=== PATIENT | male | born 1970 | race Caucasian/White ===

== ENCOUNTER 2025-02-14 19:38 | Emergency (ER) | payer BC, OTHER ==
[2025-02-14 19:50] VITALS: TEMP 97.6
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
[2025-02-14] MEDS: SODIUM CHLORIDE 0.9% 1,000 ML IV ONE ×2 (20:08→22:09)
[2025-02-14 20:19] LABS: Basophils # (A) 0.06 10*3/uL (0.00-0.10); Basophils % (A) 0.2 %; Eosinophils # (A) 0.00 10*3/uL (0.04-0.35); Eosinophils % (A) 0.0 %; HCT 40.8 % (39.6-50.0); HGB 14.8 g/dL (13.0-17.0); Lymphocytes # (A) 0.81 10*3/uL (0.90-5.00); Lymphocytes % (A) 3.1 %; MCH 31.8 pg (27.0-32.0); MCHC 36.3 g/dL (32.0-37.0); MCV 87.7 fL (80.0-97.0); Monocytes # (A) 1.25 10*3/uL (0.20-1.00); Monocytes % (A) 4.7 %; Neutrophils # (A) 24.22 10*3/uL (1.80-7.70); Neutrophils % (A) 91.6 %; Platelet Count 240 10*3/uL (140-440); RBC 4.65 10*6/uL (4.40-5.60); RDW 12.2 % (11.5-14.5); WBC 26.45 10*3/uL (4.50-10.00)
[2025-02-14 20:33] LABS: INR 1.1 (<1.2); Partial Thromboplastin Time 22.6 sec (22.0-30.0); Prothrombin Time 11.6 sec (10.0-12.5)
[2025-02-14 20:35] LABS: ALT 19 U/L (4-49); AST 50 U/L (17-59); African American GFR (CKD) >90 (>60 ml/min/1.73 sqM); Albumin 4.5 g/dL (3.5-5.0); Alkaline Phosphatase 64 U/L (38-126); Anion Gap 16 mmol/L; Blood Urea Nitrogen 17 mg/dL (9-20); Calcium 9.1 mg/dL (8.4-10.2); Carbon Dioxide 21 mmol/L (22-30); Chloride 102 mmol/L (98-107); Glucose 70 mg/dL (74-99); Magnesium 2.3 mg/dL (1.6-2.3); Non-African American GFR(CKD) >90 (>60 ml/min/1.73 sqM); Potassium 4.4 mmol/L (3.5-5.1); Sodium 139 mmol/L (137-145); Total Protein 6.6 g/dL (6.3-8.2)
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
[2025-02-14 20:53] LABS: Creatine Kinase 2254 U/L (55-170)
[2025-02-14 23:55] VITALS: BP 119/76; PULSE 94; RESP 20
== END 2025-02-14 23:56 | disposition home or self-care (01) ==
LOC: EC 19:38
DX: M62.82 Rhabdomyolysis (principal); T75.1XXA Unspecified effects of drowning and nonfatal submersion, initial encounter
CPT/HCPCS: 36415; 71046; 80053; 82550; 83605; 83735; 84100; 84484; 85025; 85610; 85730; 93005; 96360; 96361; 99284